=== PATIENT | female | born 1940 | race Caucasian/White ===

== ENCOUNTER → 2016-07-29 | Outpatient (CLI) | payer MEDICARE ==
[~2016-07-29] MED LIST: ACDPT PO; ALPR.5T PO; ASPI-586 PO; CHOL4PAC2 PO; DOCU50CA4 PO; FLUT1DIS2 IH; GLIP5TAB13 PO; LEVO75TA PO; LISI1TAB8 PO; LOVA40TA2 PO; MELO-249 PO; METO-274 PO; METO10TA3 PO; MULT-646 PO; NITR100C3 PO; OMEP20TA PO; PHEN-639 PO; PRIM50TA PO; ROPI1TAB2 PO; SERT25TA PO; SIMV40TA2 PO; [UNRECOGNIZED DRUG - CODE] PO
--- NOTE | 2016-07-30 18:36 | Diagnostic Imaging Report ---
INDICATION: Screening mammogram COMPARISON: April 17, 2015 and January 16, 2013 The current study was also evaluated with a Computer Aided Detection (CAD) system. FINDINGS: CC and MLO digital mammographic views of the breasts were obtained. There are scattered fibroglandular densities that could obscure a lesion on mammography. Benign-appearing calcifications and nodular densities in bilateral breasts are again identified. There is no dominant mass, suspicious cluster of microcalcifications or other evidence to indicate malignancy. There has been no significant change from prior mammograms. IMPRESSION: Stable mammogram without evidence of malignancy. BI-RADS Category 2: Benign findings Result letter will be mailed to the patient. Follow-up: Yearly mammogram NOTE: Keep in mind that about 10% of breast cancers will not be identified on mammography. Further evaluation of a palpable mass not seen on mammography should be based on clinical grounds. Dictated by: Dictated on workstation # [id number]
== END ==
LOC: RAD 13:51
PROVIDERS: ATTEND Family Medicine
DX: Z12.31 Encounter for screening mammogram for malignant neoplasm of breast (principal)